=== PATIENT | male | born 1970 | race Caucasian/White ===

== ENCOUNTER 2021-05-03 11:17 | Observation (INO) | payer OTHER ==
[~2021-05-03] VITALS: Ht 172.7 cm; Wt 76.4 kg
--- NOTE | ~2021-05-03 | OP ---
[facility] [address] [place] [address] OPERATIVE REPORT Name: BRIANDA HORNTimothy Arauz JR Room: [address] Kaylee#: [id number] Admission: 05/03/21 Attend Phys: Zackary Grubbs Discharge: Date of : 74 Report #: [id number] THIS REPORT FOR: cc: FAM - No family physician/PCP FAM - No family physician/PCP Zackary Grubbs MD ~ DATE OF SURGERY: 05/03/2021 PREOPERATIVE DIAGNOSIS: Perirectal abscess. POSTOPERATIVE DIAGNOSIS: Perirectal abscess. OPERATION: Incision and drainage of ischiorectal abscess. SURGEON: Zackary Grubbs MD. ANESTHESIA: General. ESTIMATED BLOOD LOSS: Minimal. SPECIMENS: None. DESCRIPTION OF PROCEDURE: After informed consent was obtained, the patient was brought to the operating room and placed supine. SCDs were placed and working, preoperative antibiotics were administered, general anesthesia was induced. The patient was placed in the dorsal lithotomy position. Dr. Pickett performed his procedure. Please see his separate operative note. After that had been completed, the area was prepped and draped in the usual sterile fashion with Betadine. I performed a digital rectal exam. There were no abnormalities. I made a 1 cm incision, 2 cm anterior to the anal verge and the perineum. Dissection was made down through the subcutaneous tissue. The pocket of pus was encountered. This was incised and approximately 30 mL of mellisa pus was suctioned out. The urethra with the catheter inside was palpated. This was normal. The area was then irrigated and packed with gauze. Sterile dressings were applied. COMPLICATIONS: None. DISPOSITION: The patient was taken to recovery in satisfactory condition. By: 1700 1740Zackary Grubbs MD /nt
[2021-05-03 11:30] VITALS: BP 119/92
[2021-05-03 12:13] LABS: ABSOLUTE EOSINOPHILS 0.1 thou/uL (0.0-0.7); ABSOLUTE LYMPHOCYTES 2.3 thou/uL (0.8-5.3); ABSOLUTE MONOCYTES 0.7 thou/uL (0.0-1.2); ABSOLUTE NEUTROPHILS 7.6 thou/uL (1.6-8.1); BASOPHILS 0.4 %; EOSINOPHILS 0.9 %; HEMATOCRIT 40.7 % (42.0-52.0); HEMOGLOBIN 13.9 gm/dL (14.0-18.0); LYMPHOCYTES 21.1 %; MCH 30.1 pg (26.0-34.0); MCHC 34.2 g/dL (28.0-37.0); MCV 87.9 fL (80.0-100.0); MONOCYTES 6.7 %; MPV 7.6 fl. (7.2-11.1); NUCLEATED RBCS 0 /100WBC; PLATELET COUNT* 310 thou/uL (150-400); POLYS 70.9 %; RBC 4.63 mil/uL (4.50-6.00); RDW-CV 12.3 % (10.5-14.5); WBC 10.7 thou/uL (4.0-11.0)
[2021-05-03 12:26] LABS: CALCIUM 8.6 mg/dL (8.5-10.1); CREATININE 0.6 mg/dL (0.6-1.3); POTASSIUM 3.5 mmol/L (3.5-5.1)
[2021-05-03 12:30] LABS: ALBUMIN 3.1 g/dL (3.4-5.0); TOTAL BILIRUBIN 0.6 mg/dL (<0.1-1.0); TOTAL PROTEIN 6.8 g/dL (6.4-8.2)
[2021-05-03 15:26] LABS: URINE BILIRUBIN NEGATIVE (Negative); URINE BLOOD NEGATIVE (Negative); URINE CLARITY CLEAR; URINE COLOR YELLOW; URINE GLUCOSE-RANDOM 3+ (Negative); URINE KETONES 2+ (Negative); URINE LEUKOCYTES-REFLEX NEGATIVE (Negative); URINE NITRITE-REFLEX NEGATIVE (Negative); URINE PROTEIN NEGATIVE (Negative); URINE SPECIFIC GRAVITY 1.015 (1.005-1.030); URINE UROBILINOGEN 0.2 E.U./dl (0.2-1.0)
[2021-05-03 16:33] VITALS: BP 129/77
[2021-05-03 20:05] VITALS: BP 119/72
[2021-05-03 23:54] VITALS: BP 141/81
[2021-05-04 04:08] VITALS: BP 135/80
--- NOTE | 2021-05-04 05:11 | NUR ---
PT A&OX4, VSS ON ROOM AIR, IV FLUIDS INFUSING ORDERED, URINARY CATHETER IN PLACE, PRN PO PAIN MED REQUESTED 1X AND GIVEN ORDERED.
[2021-05-04 09:00] VITALS: BP 125/71
[2021-05-04] MEDS ORDERED: LEVOFLOXACIN750 MG PO (11:30)
[2021-05-04] MEDS ORDERED: METFORMIN HCL500 M3 PO (11:34)
--- NOTE | 2021-05-04 13:57 | NUR ---
NURSING DIORAMA MODEL MAKER NOTIFIED, PT'S NEED FOR ACCUCHECK. NOTIFIED THAT HE WOULD DELIVER TO PATIENT'S ROOM
[2021-05-04 15:49] VITALS: BP 135/80
[2021-05-04 18:55] VITALS: BP 135/80
[2021-05-05 02:06] LABS: GLYCOHEMOGLOBIN (HGB A1C) 12.2 % (4.8-5.6)
--- NOTE | 2021-05-05 12:41 | OP ---
[address] [address] OPERATIVE REPORT Name: HORNBILLKRISTINE Arauz JR Room: [address] Kisha Page#: [id number] Admission: 05/03/21 Attend Phys: Zackary Grubbs Discharge: 05/04/21 Date of : 74 Report #: [id number] THIS REPORT FOR: cc: FAM - No family physician/PCP FAM - No family physician/PCP Gray Pickett MD ~ DATE OF SURGERY: 05/03/2021 PREOPERATIVE DIAGNOSES: Rectal abscess, meatal stenosis. POSTOPERATIVE DIAGNOSES: Rectal abscess, meatal stenosis. PROCEDURE: Urethral dilation, flexible cystoscopy, complex Rivas catheter placement. STAFF SURGEON: Gray Pickett MD. C.O.D. CLERK: None. ANESTHESIA: General. ESTIMATED BLOOD LOSS: None. COMPLICATIONS: None. SPECIMEN: None. DRAINS: A 16-[place] pass tip catheter. INDICATIONS: This is a 51-year-old white male who complains of constipation and started to have little bit of discomfort last Saturday and by last Saturday, became rather severe, began taking cathartics to improve, but again not feeling well. He felt like there was a "tear" in his rectal area. He kind of slept on Saturday and Saturday. He had low-grade fever. He got to some point where he could not sit down. He came to [facility] where a CT scan performed, appears to have an anterior perirectal abscess abutting the urethra. He has had history of urethral surgery before and on exam, a very tight urethral stricture. He was complaining of some obstructive voiding symptoms, elected for urethral dilation, cystoscopy, Rivas catheter placement. After risks and benefits of the procedure explained, an informed consent was obtained. OPERATIVE PROCEDURE: The patient was taken to the operating room, comfortably placed in the dorsal lithotomy position under adequate general anesthesia. He was sterilely prepped and draped in standard fashion exposing only the genitalia. Appropriate timeout was carried out and all were in agreement. He was up to date on his antibiotic therapy. Dinesh paige [place] [address] [address] OPERATIVE REPORT Name: BILL HORN JR [address]#: [id number] Admission: 05/03/21 Attend Phys: Zackary Grubbs Discharge: 05/04/21 Date of : 74 Report #: [id number] 20-Ukrainian were used to dilate up his meatal stenosis. He had a coronal hypospadias present. I was able to put a 16-[place]rainian flexible scope into the urethra. Remaining part of the urethra was normal, sphincter was intact. Prostate showed minimal hyperplasia. No disruption or abnormality with urethra. Over the flexible scope, an 0.035 Glidewire was advanced over the guidewire and coiled in the bladder. Flexible scope was removed and a 16-[place] pass tip catheter was advanced over the guidewire, coiled in the bladder, secured with 10 mL sterile water. The guidewire was removed and placed in dependent drainage. He tolerated this extremely well. Dr. Grubbs came in to drain the perirectal abscess. May remove the Rivas catheter in the morning. Follow up in our office as needed. <ELECTRONICALLY SIGNED> By: Gray Pickett MD 05/05/21 [id number] Pickett MD /nt
== END 2021-05-04 16:15 | disposition home or self-care (01) ==
LOC: M.ERS 11:17 → M.3W 15:09 → M.TBA-ER 15:09 → M.3W 18:54
PROVIDERS: Internal Medicine; Physician Assistant; ADMIT Surgery; ATTEND Surgery
DX: K61.39 Other ischiorectal abscess (principal); Z20.822 Contact with and (suspected) exposure to COVID-19; F17.210 Nicotine dependence, cigarettes, uncomplicated; E11.9 Type 2 diabetes mellitus without complications; K59.00 Constipation, unspecified

== ENCOUNTER 2021-07-04 06:45 | Emergency (ER) | payer OTHER ==
[~2021-07-04] VITALS: Ht 170.2 cm; Wt 64.9 kg
[~2021-07-04 06:45] MED LIST: LEVOFLOXACIN750 MG PO; METFORMIN HCL500 M3 PO
[2021-07-04] MEDS ORDERED: LIPITOR10 MG PO (06:57)
[2021-07-04] MEDS ORDERED: PERCOCET PO (07:33)
[2021-07-04 07:42] VITALS: BP 118/71
== END 2021-07-04 07:42 | disposition home or self-care (01) ==
LOC: M.ERS 06:45
DX: G89.18 Other acute postprocedural pain (principal); Z79.899 Other long term (current) drug therapy